=== PATIENT | male | born 1990 | race Caucasian/White ===

== ENCOUNTER 2019-01-21 10:12 | Emergency (ER) | payer BC ==
[~2019-01-21] VITALS: Ht 175.3 cm; Wt 124.3 kg
[2019-01-21 12:44] VITALS: BP 138/78
== END 2019-01-21 12:44 | disposition home or self-care (01) ==
LOC: ED 10:12
DX: S16.1XXA Strain of muscle, fascia and tendon at neck level, initial encounter (principal); S29.012A Strain of muscle and tendon of back wall of thorax, initial encounter; S09.8XXA Other specified injuries of head, initial encounter; J45.909 Unspecified asthma, uncomplicated; V98.8XXA Other specified transport accidents, initial encounter; Y93.I9 Activity, other involving external motion; Y92.413 State road as the place of occurrence of the external cause; Y99.8 Other external cause status
CPT/HCPCS: Q0092